=== PATIENT | female | born 1945 | race Caucasian/White ===

== ENCOUNTER 2017-06-29 09:00 | Outpatient (CLI) | payer MEDICARE ==
[2017-06-29 14:39] LABS: #Basophils 0.1 thou/uL (0.0-0.2); #Eosinphils 0.3 thou/uL (0.0-0.7); #Lymphocytes 2.7 thou/uL (1.20-3.40); #Monocytes 0.8 thou/uL (0.11-0.59); #Neutrophils 7.2 thou/uL (1.40-6.50); %Basophils 0.6 % (0.0-1.0); %Lymphocytes 24.2 % (21.0-51.0); %Neutrophils 65.2 % (42.0-75.0); Hemoglobin 12.3 g/dL (12.0-16.0); Mean Corpuscular Hemoglobin 31.2 pg (27.0-31.0); Mean Corpuscular Volume 97.6 fl (81.0-99.0); Platelet Count 621 thou/uL (130-400); RBC Distribution Width 12.2 % (11.5-14.5); Red Blood Cell (RBC) Count 3.93 mill/uL (4.20-5.40)
[2017-06-29 14:40] LABS: Bilirubin Negative (Negative); Blood, Urine Negative (Negative); Clarity CLEAR (Clear); Glucose, Urine (Dipstick) Negative (Negative); Leukocyte Trace (Negative); Nitrite Negative (Negative); Protein, Urine (Dipstick) Negative (Neg-Trace); Specific Gravity, Urine 1.033 (1.002-1.036); Urobilinogen 0.2 mg/dL (0.2-1.0); pH, Urine 5.5 (5.0-9.0)
[2017-06-29 14:44] LABS: Bacteria/HPF None Seen HPF (None Seen); Hyaline Casts/LPF 0-3 HYALINE CAST LPF (0-3 Hyaline); Pathc Cast-AUWi Flag 0.13 (0-2.49); Squamous Epithelial 0-3 HPF (0-3); WBC/HPF 0-3 HPF (0-3)
[2017-06-29 14:45] LABS: PTT 27.2 SEC (22.9-36.1); Prothrombin Time 13.3 SEC (12.0-14.7)
[2017-06-29 15:23] LABS: Anion Gap 18 mmol/L (10-20); BUN (Urea Nitrogen) 32 mg/dL (9.8-20.1); Calc. Creatinine Clearance 0 mL/min (70-130); Calcium 10.8 mg/dL (7.8-10.44); Carbon Dioxide 22 mmol/L (23-31); Chloride 105 mmol/L (98-107); Estimated GFR-MDRD 35; Glucose 140 mg/dL (83-110); Potassium 4.4 mmol/L (3.5-5.1); Sodium 141 mmol/L (136-145)
--- NOTE | 2017-06-29 19:59 | EKG ---
Test Reason : Blood Pressure : / mmHG Vent. Rate : 107 BPM Atrial Rate : 107 BPM P-R Int : 122 ms QRS Dur : 080 ms QT Int : 330 ms P-R-T Axes : 052 052 052 degrees QTc Int : 440 ms Sinus tachycardia Otherwise normal ECG When compared with ECG of 09-MAY-2016 15:49, No significant change was found Confirmed by KATERINA BAHENA, SAria ([id number]) on 06/29/2017 7:59:03 PM Referred By: [place]LE Confirmed By:DR. Josh BORGES MD
== END 2017-06-29 09:01 | disposition home or self-care (01) ==
LOC: LABBT 09:00
PROVIDERS: ATTEND Orthopaedic Surgery
DX: Z01.818 Encounter for other preprocedural examination (principal); M17.0 Bilateral primary osteoarthritis of knee
CPT/HCPCS: 80048; 81001; 85025; 85610; 85730; 86850; 86900; 86901; 93005; 93010

== ENCOUNTER 2017-07-03 05:29 | Day surgery (SDC) | payer MEDICARE ==
[2017-06-29 13:34] VITALS: BMI 29.1
[2017-07-03] MEDS ORDERED: CEFAZOLIN/Water 2 GM/20 ML SYRINGE ONE (05:54)
[2017-07-03] MEDS ORDERED: Tranexamic Acid 1,000 MG/100 ML BAG ONE ×2 (05:56→09:19)
[2017-07-03] MEDS ORDERED: Ropivacaine 0.2% HCl/PF 20 ML ONE (06:18)
[2017-07-03] MEDS ORDERED: Midazolam HCl 2 mg/2 ml Vial ONE (06:18)
[2017-07-03] MEDS ORDERED: Fentanyl 100 MCG/2 ML VIAL ONE ×3 (06:18→09:29)
[2017-07-03] MEDS ORDERED: Lidocaine 1% (PF) 30 ML VIAL ONE (06:18)
[2017-07-03] MEDS ORDERED: Triamcinolone 40 MG/ML VIAL ONE ×2 (06:38→07:19)
[2017-07-03] MEDS ORDERED: Lidocaine 1% w/Epinephrine 1:200K 30 ML VIAL ONE (06:38)
[2017-07-03] MEDS ORDERED: Bupivacaine PF 0.5% 30 ML VIAL ONE (06:38)
[2017-07-03] MEDS ORDERED: Ondansetron HCl/PF 4 MG/2 ML Vial IVP PRN ×3 (07:19→09:15)
[2017-07-03] MEDS ORDERED: Promethazine HCl 25 MG/ML VIAL IM PRN ×3 (07:19→09:15)
[2017-07-03] MEDS ORDERED: Zolpidem Tartrate 5 MG TAB PO PRN ×2 (07:19→09:00)
[2017-07-03] MEDS ORDERED: Ropivacaine 0.2% 550 ML 550 ML NERVE BLCK SCH (07:19)
[2017-07-03] MEDS ORDERED: HYDROcodone/Acetaminophen 10/325 mg Tablet PO PRN (07:19)
[2017-07-03] MEDS ORDERED: Fentanyl 100 MCG/2 ML VIAL IV PRN (07:20)
[2017-07-03 08:01] LABS: #Basophils 0.1 thou/uL (0.0-0.2); #Eosinphils 0.2 thou/uL (0.0-0.7); #Lymphocytes 1.6 thou/uL (1.20-3.40); #Monocytes 0.5 thou/uL (0.11-0.59); #Neutrophils 3.8 thou/uL (1.40-6.50); %Basophils 0.9 % (0.0-1.0); %Eosinophils 3.5 % (0.0-10.0); %Lymphocytes 25.2 % (21.0-51.0); %Monocytes 8.2 % (0.0-10.0); %Neutrophils 62.1 % (42.0-75.0); Hemoglobin 9.9 g/dL (12.0-16.0); Mean Corpuscular HGB CONC 31.9 g/dL (32.0-36.0); Mean Corpuscular Hemoglobin 30.8 pg (27.0-31.0); Mean Corpuscular Volume 96.4 fl (81.0-99.0); Platelet Count 376 thou/uL (130-400); RBC Distribution Width 12.3 % (11.5-14.5); Red Blood Cell (RBC) Count 3.21 mill/uL (4.20-5.40); White Blood Cell (WBC) Count 6.2 thou/uL (4.8-10.8)
[2017-07-03] MEDS ORDERED: Tranexamic Acid 1,000 MG in Sodium Chloride 0.9% 100 ML IVPB SCH (09:00)
[2017-07-03] MEDS ORDERED: Acetaminophen 325 MG TAB PO PRN (09:00)
[2017-07-03] MEDS ORDERED: diphenhydrAMINE 25 MG CAP PO PRN (09:00)
[2017-07-03] MEDS ORDERED: Promethazine HCl 25 MG/ML VIAL SLOW IVP PRN (09:15)
--- NOTE | 2017-07-03 09:17 | OP ---
DATE OF PROCEDURE: 07/03/2017 PREOPERATIVE DIAGNOSIS: Bilateral knee arthritis, left worse than right. POSTOPERATIVE DIAGNOSIS: Bilateral knee arthritis, left worse than right. PROCEDURES PERFORMED: 1. Left total knee replacement using Outlook pinless navigation. 2. Right knee corticosteroid injection. SURGEON: Adnrew Rob M.D. OFFICE SUPERVISOR: Jose Lechuga PA-C. BLOOD LOSS: Minimal. COMPLICATIONS: None. DISPOSITION: She did go to recovery room in stable condition. ANESTHESIA: She had general anesthetic. She also had some preoperative blocks. INDICATIONS: A 72-year-old female with bilateral valgus knees. The left is much more painful to her and she wished to have this replaced. IMPLANTS: [employer] Triathlon total knee system. The femur was a size 3 cruciate retaining, and we us ed a size 3 universal tibial baseplate. We used a 3 x 9 mm CSX3 tibial bearing and an asymmetric 27 x 8 X3 patella. DESCRIPTION OF PROCEDURE: After all appropriate consent forms were explained and signed, she was jair en back to the operating room and at this time was given general anesthetic. Once anesthesia was jeny ropriate, the right knee was cleaned with alcohol, 80 mg of Depo-Medrol and local were injected into the right knee without complication. A Band-Aid was applied. The limb was exsanguinated and tourniq uet taken up to 300 mmHg. Midline incision was made with a 10 blade down through the skin and subcuta neous tissue. Bovie electrocautery was used to coagulate any brisk venous bleeding. A new blade was u sed to make a medial parapatellar arthrotomy. Small subperiosteal release was performed medially and excess fat pad was removed. The knee was flexed up to gain access to the femur. The femur was navigat ed and distal femoral resection was made. Epicondylar access was used to align our sizing jig and thi s was pinned in place. We sized our femur to be a size 3 cruciate retaining, 4:1 cutting block was ap plied and pinned. Anterior and posterior chamfer cuts were then made. We navigated out our proximal t ibia and made our proximal tibial resection. Spreaders were used to remove any posterior osteophytes off the back of the femur as well as remaining meniscal tissue. A long alignment linnette was then used to achieve correct rotation of our tibial baseplate and a size 3 was chosen. This was pinned in place. We trialed the polyethylene and a 3 x 9 mm CSX3 polyethylene gave us full extension and good stabilit y throughout range of motion. Two towel clips and a saw were used to cut our patella. Three lug nuts were drilled and left patella was trialed which sat nicely in the trochlear groove. We then drilled o ur femur and punched our tibia. All components were removed. The knee was thoroughly irrigated and dr ken. Cement was mixed into the cement gun on the back table. Components were then placed. The knee wa s held out in full extension until the cement had dried. All excess bone cement was removed. Multipl e #2 Vicryl stitches as well as a Quill was used to close our extensor mechanism. 0 Quill followed by a running Monoderm was then used to close the skin. Surgicel glue was then used on the skin. Once th is had dried, soft tissue dressing was applied to the limb, tourniquet was let down, and the toes pin ked up nicely. The patient was then awakened and taken to the Recovery Room in stable condition. All counts were correct at the end of the case. The patient did receive preoperative IV antibiotics. Th e patient was injected with Exparel for postoperative pain relief.
[2017-07-03] MEDS ORDERED: Ketorolac Tromethamine 30 MG/ML VIAL ONE (09:20)
[2017-07-03] MEDS: Ferrous Gluconate 324 MG TAB PO SCH ×2 (10:58→21:09)
[2017-07-03] MEDS: Aspirin 325 MG TAB PO SCH ×2 (10:58→21:08)
[2017-07-03] MEDS: Multivitamin W/ Minerals 1 TAB PO SCH (10:58)
[2017-07-03] MEDS: Senokot S 8.6-50 MG TAB PO SCH ×2 (10:59→21:09)
[2017-07-03] MEDS: Ketorolac Tromethamine 30 MG/ML VIAL IVP SCH ×3 (11:59→23:16)
[2017-07-03] MEDS: Sodium Chloride 0.9% 1,000 ML IV SCH ×2 (12:03→21:08)
[2017-07-03] MEDS ORDERED: Eucerin (Mineral Oil/Petrolatum,White) 30 gm Jar TOP PRN (12:58)
[2017-07-03] MEDS ORDERED: Dextrose 5% in Water 1,000 ML IV PRN (12:58)
[2017-07-03] MEDS ORDERED: Artificial Tear Sol 15 ML BOT EA EYE PRN (12:58)
[2017-07-03] MEDS ORDERED: Milk Of Magnesia 30 ML UDCUP PO PRN (12:58)
[2017-07-03] MEDS ORDERED: hydrALAZINE 20 MG/ML VIAL SLOW IVP PRN (12:58)
[2017-07-03] MEDS ORDERED: Loperamide HCl 2 MG CAP PO PRN (12:58)
[2017-07-03] MEDS ORDERED: Ondansetron ODT 4 MG TAB PO PRN (12:58)
[2017-07-03] MEDS ORDERED: Mag-Al 1200 mg/1200 mg/30 ML UDCUP PO PRN (12:58)
[2017-07-03] MEDS ORDERED: Bisacodyl 10 MG SUPP PR PRN (12:58)
[2017-07-03] MEDS ORDERED: Diabetic Tussin 200 MG/10 ML UDCUP PO PRN (12:58)
[2017-07-03] MEDS ORDERED: Dextrose 50% Abboject 50 ML SYRINGE SLOW IVP PRN (12:58)
[2017-07-03] MEDS ORDERED: Sodium Chloride 0.65% Nasal 44 ML BOT EA NARE PRN (12:58)
--- NOTE | 2017-07-03 13:47 | CON ---
DATE OF CONSULTATION: 07/03/2017 PRIMARY CARE PHYSICIAN: Dr. Jeremy Baxter. [facility] ATTENDING: Dr. Liane Morales. REASON FOR ADMISSION: Elective admission for left total knee replacement. REASON FOR CONSULT: Medical management. HISTORY OF PRESENT ILLNESS: A 72-year-old female who has underlying history of hypertension, diabetes type 2, dyslipidemia as well as osteoarthritis of both knee. The patient was following Dr. Rob as an outpatient basis. The patient has been tried all conservative treatment for her osteoarthritis, but gradually it was affecting her quality of life and the patient agreed to go for a knee replacement. Today, the patient had a left total knee replacement and also she had a steroid injection in her right knee. Earlier today, the patient had surgery and subsequently the patient was transferred to the [facility]. At that point, Sound team was consulted for medical comanagement. I saw this patient personally at bedside, family member was present, the patient 's pain was under control. She had nerve block in place. The patient was hemodynamically stable. She did not have any chest pain or palpitations. She denies any UTI symptoms. She denies any constipation, diarrhea, melena, or hematochezia. The patient reports that she did not take her diabetes as well as blood pressure medication earlier today because of surgery. REVIEW OF SYSTEMS: Please see my HPI for pertinent positives and negatives. All other review of system reviewed and negative except as mentioned in the HPI: Constitutional: Weight loss or gain, ability to conduct usual activities. Skin: Rash, itching. Eyes: Double vision, pain. ENT/Mouth: Nose bleeding, neck stiffness, pain, tenderness. Cardiovascular: Palpitations, dyspnea on exertion, orthopnea. Respiratory: Shortness of breath, wheezing, cough, hemoptysis, fever or night sweats. Gastrointestinal: Poor appetite, abdominal pain, heartburn, nausea, vomiting, constipation, or diarrhea. Genitourinary: Urgency, frequency, dysuria, nocturia. Musculoskeletal: Pain, swelling. Neurologic/Psychiatric: Anxiety, depression. Allergy/Immunologic: Skin rash, bleeding tendency. ALLERGIES: The patient is not tolerating TRAMADOL. CURRENT HOME MEDICATIONS: Tylenol 1 g t.i.d. p.r.n.; Tylenol #3 one or two tablets q.4 hourly p.r.n.; aspirin 325 mg p.o. daily, this medication was on hold before surgery and now will be resumed; Lipitor 10 mg p.o. at bedtime; clonazepam 1 or 2 tablets p.o. at bedtime; TriCor 145 mg p.o. daily; flaxseed 1200 mg p.o. b.i.d.; Amaryl 2 mg p.o. b.i.d.; hydrochlorothiazide 25 mg p.o. daily; lisinopril 20 mg p.o. at bedtime; metformin 1000 mg p.o. b.i.d.; multivitamin 1 tablet p.o. daily; Actos 15 mg p.o. daily. PAST MEDICAL HISTORY: hypertension, diabetes type 2, dyslipidemia as well as osteoarthritis of both knee PAST SURGICAL HISTORY: The patient had lymph node removed in the past, lumbar spine surgery, status post left total knee replacement today and right intraarticular injection. PAST PSYCHIATRIC HISTORY: Reviewed and negative. FAMILY HISTORY: No strong family history of premature coronary artery disease, stroke or cancer. Diabetes and hypertension runs among several family members. CURRENT HOSPITAL COURSE: Reviewed. SOCIAL HISTORY: The patient is and lives at home with the family. No history of tobacco, alcohol or illicit drug abuse. PHYSICAL EXAMINATION: VITAL SIGNS: Currently, temperature 97.7, pulse 86, respiratory rate 18, saturation 98%, weight 175 pounds. GENERAL: The patient is currently alert, awake, no obvious acute distress. HEAD: Normocephalic, atraumatic. EYES: Pupils round, reactive to light. Extraocular muscle intact. ENT: Oropharynx within normal limits. Moist mucous membranes. No oral lesions. No pharyngeal erythema. No exudate. NECK: Supple, no JVD, no thyromegaly, no carotid bruit, no jugular venous distention. LUNGS: Clear to auscultation without any rhonchi or rales. CARDIAC: S1, S2 regular without any murmur. ABDOMEN: Soft, bowel sounds present, nontender, nondistended. No organomegaly. No mass. No suprapubic tenderness. BACK: Unremarkable. No CVA tenderness. EXTREMITIES: Upper extremity passive movements of all joints are normal. Lower extremities: Left lower extremity covered with dressing. Good distal pulsation. NEUROLOGIC: Nonfocal examination. PSYCHIATRIC: Normal affect. SIGNIFICANT LABORATORY DATA: 1. CBC: WBC 6.2, hemoglobin 9.9, platelets 376. 2. INR 1.0. 3. BMP: Sodium 141, potassium 4.4, chloride 105, carbon dioxide 22, BUN 32, creatinine 1.46, glucose 140, calcium 10.8. Urinalysis unremarkable. Electrocardiogram based on my review normal sinus rhythm without any ischemic changes. ASSESSMENT AND PLAN: 1. Status post left total knee replacement and status post right knee intraarticular steroid injection. At this point, the patient is getting aspirin 325 mg p.o. b.i.d., for deep venous thrombosis prophylaxis as per protocol. The patient will have [facility] protocol treatment with PT, OT. Her pain will be controlled with pain medication. Further plan will defer to primary team. 2. Diabetes type 2. We will start diabetic diet. We will provide insulin as per sliding scale per protocol while in hospital. We will resume glimepiride 2 mg p.o. b.i.d., metformin 1000 mg p.o. b.i.d. and Actos 15 mg p.o. daily. 3. Hypertension. Currently well controlled. We will hold blood pressure medication if blood pressure is less than 110. Otherwise, we will continue hydrochlorothiazide 25 mg p.o. daily, lisinopril 20 mg p.o. at bedtime. We will monitor her vitals more frequently while in hospital. 4. Dyslipidemia, currently stable. Continue Lipitor 10 mg p.o. at bedtime and TriCor 145 mg p.o. daily, and flaxseed 1200 mg p.o. b.i.d. 5. Chronic kidney disease stage 3. We will monitor renal function. We will avoid nephrotoxic agents. 6. Osteoarthritis. The patient does have osteoarthritis of the knees. Today, patient is status post left knee replacement and the patient was given steroid injection in the right knee. 7. Deep venous thrombosis prophylaxis as per protocol. The patient is on aspirin therapy for DVT prophylaxis. Gastrointestinal prophylaxis, Pepcid 20 mg p.o. b.i.d. 8. Code status: The patient is full CODE. The patient does not have any surrogate decision maker. Disposition plan based on clinical course. We are expecting patient's stay in the hospital more than 2 midnights. Plan of care discussed with the family member at bedside. MAE
[2017-07-03] MEDS ORDERED: Ropivacaine 0.2% HCl/PF (40 MG/20 ML VIAL) ONE (14:12)
[2017-07-03] MEDS ORDERED: Ropivacaine 0.5% HCl/PF (150 MG/30 ML VIAL) ONE (14:12)
[2017-07-03] MEDS ORDERED: Ondansetron HCl/PF 4 MG/2 ML Vial ONE (14:17)
[2017-07-03] MEDS ORDERED: PHENYLEPHRINE-NS 100 MCG/ML 10 ML SYRINGE ONE (14:17)
[2017-07-03] MEDS ORDERED: Propofol 200 MG/20 ML VIAL ONE (14:17)
[2017-07-03] MEDS: CEFAZOLIN/Water 2 GM/20 ML SYRINGE SLOW IVP SCH ×2 (15:53→21:09)
[2017-07-03] MEDS: metFORMIN 500 MG TAB PO SCH (17:27)
[2017-07-03] MEDS: HumaLOG 300 UNITS/3 ML VIAL SC PRN ×2 (17:29→21:27)
[2017-07-03] MEDS ORDERED: Vancomycin HCl 1 GM in Premix Bag 1 BAG IVPB SCH (18:00)
[2017-07-03] MEDS: Atorvastatin Calcium 10 MG TAB PO SCH (21:08)
[2017-07-03] MEDS: clonazePAM 1 MG TAB PO SCH (21:09)
[2017-07-03] MEDS: Lisinopril 20 MG TAB PO SCH (21:14)
[2017-07-03] MEDS: Glimepiride 2 MG TAB PO SCH (21:48)
[2017-07-04 05:35] LABS: Mean Corpuscular HGB CONC 32.2 g/dL (32.0-36.0); Mean Corpuscular Hemoglobin 31.2 pg (27.0-31.0); Mean Corpuscular Volume 96.9 fl (81.0-99.0); Platelet Count 389 thou/uL (130-400); RBC Distribution Width 12.4 % (11.5-14.5); Red Blood Cell (RBC) Count 3.21 mill/uL (4.20-5.40); White Blood Cell (WBC) Count 12.2 thou/uL (4.8-10.8)
[2017-07-04] MEDS: Ketorolac Tromethamine 30 MG/ML VIAL IVP SCH (05:49)
[2017-07-04] MEDS: Sodium Chloride 0.9% 1,000 ML IV SCH ×2 (05:50→16:55)
[2017-07-04] MEDS: HumaLOG 300 UNITS/3 ML VIAL SC PRN ×4 (06:01→21:42)
[2017-07-04] MEDS: metFORMIN 500 MG TAB PO SCH ×2 (08:16→16:54)
[2017-07-04] MEDS: Aspirin 325 MG TAB PO SCH ×2 (08:17→21:35)
[2017-07-04] MEDS: Hydrochlorothiazide 25 MG TAB PO SCH (08:17)
[2017-07-04] MEDS: Pioglitazone HCl 15 MG TAB PO SCH (08:17)
[2017-07-04] MEDS: Multivitamin W/ Minerals 1 TAB PO SCH (08:17)
[2017-07-04] MEDS: Ferrous Gluconate 324 MG TAB PO SCH ×2 (08:17→21:36)
[2017-07-04] MEDS: Senokot S 8.6-50 MG TAB PO SCH ×2 (08:17→21:35)
[2017-07-04] MEDS: Multivit, Therapeutic 1 TAB PO SCH (08:18)
[2017-07-04] MEDS: Famotidine 20 MG TAB PO SCH (08:18)
[2017-07-04] MEDS: HYDROcodone/Acetaminophen 10/325 mg Tablet PO PRN ×2 (08:26→13:16)
[2017-07-04] MEDS: Glimepiride 2 MG TAB PO SCH ×2 (08:27→21:36)
--- NOTE | 2017-07-04 14:15 | PRG ---
DATE OF SERVICE: 07/04/2017 SUBJECTIVE: Aimee is a 72-year-old white female who is postop day #1 from a left total knee arthropl asty with right knee intra-articular corticosteroid injection. Her past medical history is significa nt for chronic anemia as well as diabetes type 2. Pain is relatively well controlled at this point. She has done very well with therapy, ambulating independently with standby assist of one, rising fro m seated to standing position and also back and forth to bedside commode independently. OBJECTIVE: Her incision is clean and closed. No strike through. She is neurovascularly intact in b oth lower extremities. LABORATORY: Hemoglobin 10.0 with hematocrit 31.1. VITAL SIGNS: Temperature 97.8, pulse 102, respiratory rate 20, blood pressure 151/77. Her fingerstick glucometries have been between 251 and 287. ASSESSMENT: 1. A 72-year-old white female postop day #1 left total knee arthroplasty. 2. Diabetes type 2, currently poorly controlled. 3. Anemia of chronic disease with superimposed acute blood loss anemia. PLAN: Based on her labile glycemia I think that we should delay discharge until tomorrow and reasses s fingerstick glucometry at regular intervals. Also, check an H&H in the morning and make sure there is no correlation between her mild tachycardia and anemia. We will reassess the patient in the morn ing. Hold discharge until then.
[2017-07-04] MEDS: Fenofibrate Nanocrystallized 145 MG TAB PO SCH (16:58)
--- NOTE | 2017-07-04 20:39 | PDOC.PN ---
- Subjective Encounter Start Date: 07/04/17 Encounter Start Time: 19:30 Patient seen and examined. No new complaints. No overnight events - Objective Resuscitation Status: Resuscitation Status FULL:Full Resuscitation MAR Reviewed: Yes Vital Signs & Weight: Vital Signs (12 hours) Temp Pulse Resp BP Pulse Ox 07/04/17 15:40 98.4 F 96 20 136/73 98 07/04/17 11:40 97.8 F 102 H 20 151/77 H 99 Weight Admit Weight 175 lb Weight 175 lb I&O: 07/03/17 07/04/17 07/05/17 06:59 06:59 06:59 Intake Total 2850 Output Total 1550 Balance 1300 Result Diagrams: 07/04/17 05:06 Additional Labs: Accuchecks 07/04/17 07/04/17 07/04/17 16:25 11:56 05:59 POC Glucose 188 H 251 H 287 H 07/03/17 21:11 POC Glucose 280 H Phys Exam - Physical Examination Constitutional: NAD Respiratory: no wheezing, no rhonchi Cardiovascular: RRR, no rub Gastrointestinal: soft, non-tender, positive bowel sounds Musculoskeletal: no edema Neurological: moves all 4 limbs Psychiatric: A&O x 3 Dx/Plan - Plan DVT proph w/SCDs IMPRESSION: 1. DM2 - uncontrolled - probably due to surgical stress/regular diet 2. HTN 3. CKD 3 4. Dyslipidemia 5. DJD 6. Chronic insomnia PLAN: * Cont to monitor glucose * Cont Actos, Amaryl and Metformin with sliding scale * Cont current meds as below * Cont home dose of Clonazepam * Cont current anti HTN meds Review of Systems - Review of Systems Respiratory: negative: Cough, Dry, Shortness of Breath, Hemoptysis, SOB with Excertion, Pleuritic Pain, Sputum, Wheezing Cardiovascular: negative: chest pain, palpitations, orthopnea, paroxysmal nocturnal dyspnea, edema, light headedness - Medications/Allergies Allergies/Adverse Reactions: Allergies Allergy/AdvReac Type Severity Reaction Status Date / Time tramadol Allergy Verified 06/29/17 13:34 Medications: Current Medications Acetaminophen (Tylenol) 650 mg PO Q4H PRN PRN Reason: HODGE/ T > 101F; Mild Pain (1-3) Hydrocodone Bitart/Acetaminophen (Weaver 10/325) 1 tab PO Q4H PRN PRN Reason: Pain (1-3) Last Admin: 07/04/17 18:00 Dose: 1 tab Hydrocodone Bitart/Acetaminophen (Weaver 10/325) 2 tab PO Q4H PRN PRN Reason: PAIN (4-6) Last Admin: 07/04/17 13:16 Dose: 2 tab Al Hydroxide/Mg Hydroxide (Maalox) 15 ml PO Q4H PRN PRN Reason: Heartburn or Indigestion Artificial Tears (Tears Renewed 15ml Bottle) 0 drop EA EYE PRN PRN PRN Reason: Dry Eyes Aspirin (Aspirin) 325 mg PO BID [facility] Last Admin: 07/04/17 08:17 Dose: 325 mg Atorvastatin Calcium (Lipitor) 10 mg PO HS [facility] Last Admin: 07/03/17 21:08 Dose: 10 mg Bisacodyl (Dulcolax) 10 mg VT DAILYPRN PRN PRN Reason: Constipation Clonazepam (Klonopin) 1 mg PO HS [facility] Last Admin: 07/03/17 21:09 Dose: 1 mg Clonazepam (Klonopin) 1 mg PO 2300 [facility] Dextrose/Water (Dextrose 50%) 25 gm SLOW IVP PRN PRN PRN Reason: Hypoglycemia Diphenhydramine HCl (Benadryl) 25 mg PO Q6H PRN PRN Reason: Itching Famotidine (Pepcid) 20 mg PO DAILY [facility] Last Admin: 07/04/17 08:18 Dose: 20 mg Fenofibrate (Tricor) 145 mg PO DAILY [facility] Last Admin: 07/04/17 16:58 Dose: Not Given Fentanyl (Sublimaze) 50 mcg IV Q1H PRN PRN Reason: BT PAIN Ferrous Gluconate (Fergon) 324 mg PO BID [facility] Last Admin: 07/04/17 08:17 Dose: 324 mg Glimepiride (Amaryl) 2 mg PO BID [facility] Last Admin: 07/04/17 08:27 Dose: 2 mg Glucagon (Glucagon) 1 mg IM PRN PRN PRN Reason: Hypoglycemia Guaifenesin (Robitussin Sf) 200 mg PO Q4H PRN PRN Reason: Cough Hydralazine HCl (Apresoline) 10 mg SLOW IVP Q4H PRN PRN Reason: Systolic BP > 180 Hydrochlorothiazide (Hydrochlorothiazide) 25 mg PO DAILY [facility] Last Admin: 07/04/17 08:17 Dose: 25 mg Ropivacaine (Ropivacaine 0.2% 550 Ml) 550 mls @ 0 mls/hr NERVE BLCK INF [facility] PRN Reason: As Directed Sodium Chloride (Normal Saline 0.9%) 1,000 mls @ 100 mls/hr IV .Q10H [facility] Last Admin: 07/04/17 16:55 Dose: Not Given Dextrose/Water (D5w) 1,000 mls @ 0 mls/hr IV .Q0M PRN; As Directed PRN Reason: Hypoglycemia Insulin Human Lispro (Humalog) 0 units SC .MODERATE SLIDING SC PRN PRN Reason: Moderate Correctional Scale Last Admin: 07/04/17 17:55 Dose: 2 unit Insulin Human Lispro (Humalog) 0 units SC .BEDTIME SLIDING SC PRN PRN Reason: Bedtime Correctional Scale Last Admin: 07/04/17 06:01 Dose: 3 unit Iron/Minerals/Multivitamins (Theragran M) 1 tab PO DAILY [facility] Last Admin: 07/04/17 08:17 Dose: 1 tab Lisinopril (Zestril) 20 mg PO [facility] Last Admin: 07/03/17 21:14 Dose: 20 mg Loperamide HCl (Imodium) 2 mg PO PRN PRN PRN Reason: Diarrhea/Loose Stools Magnesium Hydroxide (Milk Of Magnesium) 30 ml PO DAILYPRN PRN PRN Reason: Constipation Metformin HCl (Glucophage) 1,000 mg PO BID[facility] Last Admin: 07/04/17 16:54 Dose: 1,000 mg Mineral Oil/White Petrolatum (Eucerin Cream) 0 gm TOP BIDPRN PRN PRN Reason: Dry Skin Multivitamins (Theragran) 1 tab PO DAILY [facility] Last Admin: 07/04/17 08:18 Dose: Not Given Ondansetron HCl (Zofran) 4 mg IVP Q6H PRN PRN Reason: Nausea/Vomiting Ondansetron HCl (Zofran Odt) 4 mg PO Q6H PRN PRN Reason: Nausea/Vomiting Pioglitazone HCl (Actos) 15 mg PO DAILY [facility] Last Admin: 07/04/17 08:17 Dose: 15 mg Promethazine HCl (Phenergan) 12.5 mg IM Q4H PRN PRN Reason: Nausea/Vomiting Senna/Docusate Sodium (Senokot S) 2 tab PO BID [facility] Last Admin: 07/04/17 08:17 Dose: 2 tab Sodium Chloride (Flush - Normal Saline) 10 ml IVF PRN PRN PRN Reason: Saline Flush Sodium Chloride ([place] Nasal Rice 0.65%) 0 ml EA NARE QIDPRN PRN PRN Reason: Nasal Congestion Zolpidem Tartrate (Ambien) 5 mg PO HSPRN PRN PRN Reason: Insomnia
[2017-07-04] MEDS: clonazePAM 1 MG TAB PO SCH (21:35)
[2017-07-04] MEDS: Lisinopril 20 MG TAB PO SCH (21:36)
[2017-07-04] MEDS: Atorvastatin Calcium 10 MG TAB PO SCH (21:36)
[2017-07-04] MEDS ORDERED: clonazePAM 1 MG TAB PO SCH (23:00)
[2017-07-05] MEDS: Sodium Chloride 0.9% 1,000 ML IV SCH ×2 (01:17→12:15)
[2017-07-05 05:52] LABS: Hemoglobin 10.9 g/dL (12.0-16.0); Mean Corpuscular HGB CONC 31.7 g/dL (32.0-36.0); Mean Corpuscular Hemoglobin 30.7 pg (27.0-31.0); Mean Corpuscular Volume 96.6 fl (81.0-99.0); Mean Platelet Volume 7.2 fL (7.4-10.4); Platelet Count 475 thou/uL (130-400); RBC Distribution Width 12.6 % (11.5-14.5); Red Blood Cell (RBC) Count 3.56 mill/uL (4.20-5.40); White Blood Cell (WBC) Count 16.1 thou/uL (4.8-10.8)
[2017-07-05] MEDS: HumaLOG 300 UNITS/3 ML VIAL SC PRN (06:44)
[2017-07-05] MEDS: HYDROcodone/Acetaminophen 10/325 mg Tablet PO PRN ×2 (07:59→12:13)
[2017-07-05] MEDS: Aspirin 325 MG TAB PO SCH (07:59)
[2017-07-05] MEDS: Pioglitazone HCl 15 MG TAB PO SCH (07:59)
[2017-07-05] MEDS: Ferrous Gluconate 324 MG TAB PO SCH (08:00)
[2017-07-05] MEDS: Famotidine 20 MG TAB PO SCH (08:00)
[2017-07-05] MEDS: metFORMIN 500 MG TAB PO SCH (08:00)
[2017-07-05] MEDS: Multivitamin W/ Minerals 1 TAB PO SCH (08:00)
[2017-07-05] MEDS: Hydrochlorothiazide 25 MG TAB PO SCH (08:00)
[2017-07-05] MEDS: Senokot S 8.6-50 MG TAB PO SCH (08:01)
[2017-07-05] MEDS: Glimepiride 2 MG TAB PO SCH (08:05)
[2017-07-05] MEDS: Fenofibrate Nanocrystallized 145 MG TAB PO SCH (08:53)
[2017-07-05] MEDS: Multivit, Therapeutic 1 TAB PO SCH (08:54)
[2017-07-05 09:07] VITALS: BP 145/81; TEMP 98.6
== END 2017-07-05 13:00 | disposition home or self-care (01) ==
LOC: SDC 05:29 → SJJU 09:00 → EDSTATUS 12:30 → SDC 07-05 13:00
PROVIDERS: ATTEND Orthopaedic Surgery
PROC: 0SRD069 Replacement of Left Knee Joint with Oxidized Zirconium on Polyethylene Synthetic Substitute, Cemented, Open Approach (ICD-10-PCS; principal; 2017-07-03)
PROC: 3E0U33Z Introduction of Anti-inflammatory into Joints, Percutaneous Approach (ICD-10-PCS; 2017-07-03)
DX: M17.0 Bilateral primary osteoarthritis of knee (principal); M25.762 Osteophyte, left knee; E78.5 Hyperlipidemia, unspecified; E11.22 Type 2 diabetes mellitus with diabetic chronic kidney disease; I12.9 Hypertensive chronic kidney disease with stage 1 through stage 4 chronic kidney disease, or unspecified chronic kidney disease; N18.3 Chronic kidney disease, stage 3 (moderate); D63.1 Anemia in chronic kidney disease; Z79.84 Long term (current) use of oral hypoglycemic drugs; Z79.82 Long term (current) use of aspirin; Z79.899 Other long term (current) drug therapy; Z88.5 Allergy status to narcotic agent; Z98.42 Cataract extraction status, left eye; Z98.41 Cataract extraction status, right eye; Z98.818 Other dental procedure status; Z98.890 Other specified postprocedural states
CPT/HCPCS: 27447; 20610; 82962; 85025; 85027; 97116 ×2; 97139; 97150; 97530; A4306; C1713; C1776; G8978; G8979; 36415; 36416; J1885; J2001; J2250; J2405; J2704; J2795; J3010; J3301; J3370; S0020